=== PATIENT | female | born 1965 | race Caucasian/White ===

== ENCOUNTER 2018-01-15 20:32 | Emergency (ER) | payer OTHER ==
--- NOTE | 2018-01-15 20:42 | EDPHY ---
H & P Time Seen by Provider: 01/15/18 20:42 Constitutional: Initial Vital Signs Temperature (C) 98.4 F 01/15/18 20:42 Heart Rate 88 01/15/18 20:42 Respiratory Rate 18 01/15/18 20:42 Blood Pressure 132/95 H 01/15/18 20:42 O2 Sat (%) 94 01/15/18 20:42 O2 Delivery Mode Room Air Allergies/Adverse Reactions: levofloxacin [From Levaquin] Allergy (Verified 01/15/18 22:12) Medical Decision Making - Diagnostics Imaging: Discussed imaging studies w/ inbound call center agent Radiologist, I viewed and interpreted images myself - Diagnostics Imaging Results: Imaging Impressions Head CT 01/15/18 20:48 Impression: 1. No significant intracranial abnormality seen. 2. Hyperostosis frontalis internus of incidental note. If symptoms worsen, additional imaging may be necessary. Findings discussed with Ranjith Clark MD at 22:07 hour, 01/15/2018. Procedures: 9:20 p.m. My involvement the care this patient is solely for procedure. Please see the note of the attending physician for all other aspects of care. I was asked evaluate the patient for laceration of the left pentecostalism. Prior to my evaluation was notified that there was pulsatile bleeding from the site. At time of examination, there is no longer any pulsatile bleeding. This stopped with simple pressure. There is a small hematoma that is not expanding. I have anesthetize the area. Proceed with irrigation re-evaluation. 9:30 p.m. Notified by RN that the patient's site was bleeding again. I re-evaluated her and there is a small pulsatile bleeding on left pentecostalism. I was able to close the wound with 3 simple ruptured sutures with good hemostasis. There is no expanding hematoma. We will apply a pressure dressing re-evaluate. 10:00 p.m. Patient was re-evaluated. There is no bleeding from the wound. A pressure dressing will be applied and monitor. We discussed wound care. We discussed the need for suture removal and 7 days. I have left the details of the suture very long as they are and the hairline, but emperatriz were not appropriate given the pulsatile bleeding. No evidence of bleeding at this time. PROCEDURE: Laceration repair Consent: Verbal Location: Left pentecostalism Length of repair: 1 cm Complexity: Simple Layer involvement: Single Anesthesia: Local. 0.5% Marcaine with epinephrine, 5 mL Irrigation: Extensive Debridement: None Procedure description: Following good anesthesia, the wound was copiously irrigated. Wound bed was explored with a sterile glove, and there is no foreign body noted. No injury to the galea or frontalis. Wound borders were approximated well with good hemostasis. Tolerated well without complication. Suture/Staple material: 6-0 Prolene, 3 simple ruptured sutures Wound care: Routine as discussed Suture/Staple removal: 7 Days (Sj Chaudhry) ED Course/Re-evaluation: CHIEF COMPLAINT: Head injury HISTORY OF PRESENT ILLNESS: The patient is a 52 y/o female complaining of a head injury tonight. Per the patient's , the patient stated that she tripped over a small fence and hit her head. It is unknown if she lost consciousness. When she came inside, the patient's noticed that the patient was bleeding significantly from her head. The patient has been talking slower than normal. Currently she cannot remember the events after the fall. No chest pain, shortness of breath, nausea, vomiting, abdominal pain, urinary or bowel complaints, numbness, paresthesias. REVIEW OF SYSTEMS: A comprehensive 10 system review of systems is otherwise negative aside from elements mentioned in the history of present illness and medical decision making. PHYSICAL EXAM: HR, BP, O2 Sat, RR. Temp noted General Appearance: Appears intoxicated, alert, well hydrated, appropriate, and non-toxic appearing. Head: 1 cm laceration with a large hematoma to the left pentecostalism Eyes: Pupils equal, round, reactive to light and accommodation, EOMI, no trauma , no injection. Ears: Clear bilaterally, no perforation, normal landmarks Nose: Atraumatic, no rhinorrhea, clear. Throat: There is no erythema or exudates, no lesions, normal tonsils, mucus membranes moist. Neck: Supple, 2+ carotid upstroke, nontender, no lymphadenopathy. Respiratory: No retractions, no distress, no wheezes, and no accessory muscle use. Lungs are clear to auscultation bilaterally. Cardiovascular: Regular rate and rhythm, no murmurs, rubs, or gallops. Bilateral carotid, radial, dorsalis pedis, and posterior tibial pulses intact. Good capillary refill all extremities. Gastrointestinal: Abdomen is soft, nontender, non-distended, no masses, no rebound, no guarding, no peritoneal signs. Musculoskeletal: Normal active ROM of all extremities, atraumatic. Neurological: Alert, appropriate, and interactive. The patient has normal DTRs and non-focal cranial nerves, motor, sensory, and cerebellar exam. Skin: No rashes, good turgor, no nodules on palpation. Past medical history: Asthma Past surgical history: Denies Family history: Denies Social history: , employed as a psychotherapist, lives in [place] DIAGNOSTICS/PROCEDURES/CRITICAL CARE TIME: Head CT: Negative DIFFERENTIAL DIAGNOSIS: The differential diagnosis for the patient's head injury included but was not limited to concussion, skull fracture, intra-parenchymal contusion, subarachnoid , subdural and epidural hematoma. MEDICAL DECISION MAKING: The patient is a 52 y/o female presenting with a head injury tonight. The patient has retrograde amnesia and it is not known if she lost consciousness. There is a 1cm laceration with a large hematoma to the left pentecostalism and she appears intoxicated. Due to patient's symptoms she will need a head CT. [facility] PAC will evaluate this patient to see if she needs a suture repair. 2109: Patient has returned from CT. She has sustained a superficial arterial bleed, [facility] PAC will preform a suture repair. 2126: I reviewed patient's head CT which is negative; radiologist reading still pending. 2202: I consulted with Dr. Brenner, radiologist, who reports that the patient's head CT findings are negative. 4: Reassessed patient and discussed laboratory and imaging findings. Return precautions provided; patient is comfortable with this plan. (Ranjith Clark) - Data Points Medications Given: Discontinued Medications Diphtheria/Tetanus/Acell Pertussis (Boostrix) 0.5 ml IM .ONCE ONE Stop: 01/15/18 20:51 Last Admin: 01/15/18 22:10 Dose: 0.5 ml Departure - Departure Disposition: Home, Routine, Self-Care Clinical Impression: Scalp laceration, Hematoma, Head injury Condition: Good Instructions: Diphtheria/Acellular Pertussis/Tetanus Booster Vaccine (By injection), Care For Your Stitches (ED), Laceration (ED), Head Injury (ED), Hematoma (ED) Additional Instructions: 1. Sutures out in 5-7 days. 2. Follow-up with your primary doctor within 72 hours. 3. Return to the Emergency Department for severe headache, vomiting, vision changes, confusion, fever or other concerns. 4. Return to the Emergency Department for fever, redness, discharge from wound, increasing pain or other worsening of condition. Referrals: Alvino Dave MD [place] [place] - As per Instructions Report Scribed for: Ranjith Clark Report Scribed by: Julia Edwards Date of Report: 01/15/18 Time of Report: 20:43
[2018-01-15] MEDS ORDERED: TDAP ADULT 0.5 ML INJ (BOOSTRIX) IM ONE (20:50)
[2018-01-15 22:20] VITALS: BP 119/89
== END 2018-01-15 22:30 | disposition home or self-care (01) ==
PROC: 0HQ0XZZ Repair Scalp Skin, External Approach (ICD-10-PCS; principal; 2018-01-15)
DX: S01.01XA Laceration without foreign body of scalp, initial encounter (principal); Z23 Encounter for immunization; W01.198A Fall on same level from slipping, tripping and stumbling with subsequent striking against other object, initial encounter; Y92.9 Unspecified place or not applicable; Y99.9 Unspecified external cause status; Y93.9 Activity, unspecified

== ENCOUNTER → 2018-03-14 | Outpatient (CLI) | payer OTHER | LOC: FIMAGING 13:37 | PROVIDERS: ATTEND Internal Medicine | DX: R51 Headache (principal); R42 Dizziness and giddiness ==